=== PATIENT | female | born 1975 | race African-American/Black ===

== ENCOUNTER 2021-08-22 21:05 | Emergency (ER) | payer MEDICAID, SELFPAY ==
[~2021-08-22] VITALS: Ht 177.8 cm; Wt 137.5 kg
[2021-08-22] MEDS ORDERED: ACETAMINOPHEN 500 MG TABLET PO ONE (22:15)
[2021-08-22] MEDS ORDERED: BACITRACIN 0.9 GM PACKET OINTMENT TP ONE (23:15)
[2021-08-22] MEDS ORDERED: LIDOCAINE 5% TRANSDERMAL PATCH TD ONE (23:30)
[2021-08-23] MEDS ORDERED: ACET-3385 PO (01:24)
[2021-08-23] MEDS ORDERED: LIDO700A15 TP (01:24)
[2021-08-23 02:45] VITALS: BP 122/75
[2021-08-24] MEDS ORDERED: SODIUM CHLORIDE 0.9% 100 ML ONE (04:41)
[2021-08-24] MEDS ORDERED: IOHEXOL 350 MG/ML 150 ML VIAL ONE (04:41)
== END 2021-08-23 02:54 | disposition home or self-care (01) ==
LOC: EMS 21:07
DX: S20.211A Contusion of right front wall of thorax, initial encounter (principal); M25.551 Pain in right hip; M79.621 Pain in right upper arm; Z90.89 Acquired absence of other organs; Z88.8 Allergy status to other drugs, medicaments and biological substances; Y04.2XXA Assault by strike against or bumped into by another person, initial encounter; Y93.89 Activity, other specified; Y92.89 Other specified places as the place of occurrence of the external cause; Y99.8 Other external cause status
CPT/HCPCS: 70450; 71250; 72125; 73030; 73060; 73080; 73090; 73502; 81025; 99285; G0238; J7050; Q9967

== ENCOUNTER 2021-08-24 03:30 | Emergency (ER) | payer MEDICAID ==
[~2021-08-24] VITALS: Ht 177.8 cm; Wt 137.5 kg
[~2021-08-24 03:30] MED LIST: ACET-3385 PO; LIDO700A15 TP
[2021-08-24 04:27] LABS: BASOPHILS % (AUTO) 1.1 % (0.0-2.0); EOSINOPHILS % (AUTO) 2.2 % (1.0-6.0); HEMATOCRIT 37.2 % (36-46); HEMOGLOBIN 12.6 g/dL (12.0-16.0); LYMPHOCYTES # (AUTO) 2.2 K/uL (1.0-4.8); LYMPHOCYTES % (AUTO) 30.1 % (22.0-44.0); MEAN CORPUSCULAR HGB CONC 33.9 G/dL (31.0-37.0); MEAN CORPUSCULAR VOLUME 89 fL (80-100); MONOCYTES # (AUTO) 0.7 K/uL (0.1-1.0); MONOCYTES % (AUTO) 10.1 % (2.0-9.0); NEUTROPHILS # (AUTO) 4.2 K/uL (1.8-7.7); NEUTROPHILS % (AUTO) 56.5 % (40.0-70.0); PLATELET COUNT (AUTO) 317 K/uL (150-450); RED CELL DISTRIBUTION WIDTH 14.3 % (11.5-14.5)
[2021-08-24 04:28] LABS: ANION GAP 6 mmol/L (8-16); CARBON DIOXIDE 30 mmol/L (22-29); CHLORIDE 107 mmol/L (98-107); CREATININE 1.09 mg/dL (0.60-1.30); GLOMERULAR FILTR. RATE CALC > 60 mL/min (>60); GLUCOSE,RANDOM 94 mg/dL (70-110); POTASSIUM 3.7 mmol/L (3.5-5.1); SODIUM SERUM 143 mmol/L (136-145); UREA NITROGEN, BLOOD 13 mg/dL (7-18)
[2021-08-24] MEDS ORDERED: ONDANSETRON HCL 4 MG/2 ML VIAL IVP ONE (04:30)
[2021-08-24] MEDS ORDERED: ACETAMINOPHEN 500 MG TABLET PO ONE (04:30)
[2021-08-24 04:32] LABS: PROTHROMBIN TIME 10.5 SEC (9.4-11.6)
[2021-08-24 04:39] LABS: ALANINE AMINOTRANSFERASE 31 U/L (12-78); ALBUMIN 3.1 g/dL (3.4-5.0); ALKALINE PHOSPHATASE 98 U/L (46-116); ASPARTATE AMINOTRANSFERASE 19 U/L (15-37); BILIRUBIN,TOTAL 0.3 mg/dL (0.1-1.0); HCG,QUANTITATIVE < 1 mIU/mL (0-6); TOTAL PROTEIN, SERUM 7.3 g/dL (6.4-8.2)
[2021-08-24] MEDS ORDERED: DiphenhydrAMINE HCL 50 MG/ML VIAL IVP ONE (04:45)
[2021-08-24 04:56] LABS: LIPASE 163 U/L (73-393)
[2021-08-24] MEDS ORDERED: METOCLOPRAMIDE HCL 5 MG/ML 2 ML VIAL IVP ONE (05:00)
[2021-08-24 07:35] VITALS: BP 119/79
== END 2021-08-24 08:56 | disposition home or self-care (01) ==
LOC: EMS 03:31
DX: S20.211A Contusion of right front wall of thorax, initial encounter (principal); M54.9 Dorsalgia, unspecified; R04.2 Hemoptysis; I10 Essential (primary) hypertension; E78.00 Pure hypercholesterolemia, unspecified; Z88.8 Allergy status to other drugs, medicaments and biological substances; Z79.899 Other long term (current) drug therapy; Y04.0XXA Assault by unarmed brawl or fight, initial encounter; Y93.89 Activity, other specified; Y92.89 Other specified places as the place of occurrence of the external cause; Y99.8 Other external cause status
CPT/HCPCS: 36415; 70450; 71260; 74177; 80053; 83690; 84702; 85025; 85610; 85730; 96374; 96375; 99285; J1200; J2405; J2765; 72193; 74160

== ENCOUNTER 2022-02-08 22:01 | Emergency (ER) | payer MEDICAID ==
[~2022-02-08] VITALS: Ht 177.8 cm; Wt 140.0 kg
[2022-02-08] MEDS ORDERED: METHOCARBAMOL 100 MG/ML 10 ML VIAL IVP ONE (23:45)
[2022-02-08] MEDS ORDERED: KETOROLAC TROMETHAMINE 30 MG/ML VIAL IVP ONE (23:45)
[2022-02-09 00:10] LABS: BASOPHILS % (AUTO) 1.8 % (0.0-2.0); EOSINOPHILS % (AUTO) 2.3 % (1.0-6.0); HEMATOCRIT 42.6 % (36-46); HEMOGLOBIN 14.1 g/dL (12.0-16.0); LYMPHOCYTES % (AUTO) 40.1 % (22.0-44.0); MEAN CORPUSCULAR HGB CONC 33.1 G/dL (31.0-37.0); MEAN CORPUSCULAR VOLUME 90 fL (80-100); MONOCYTES # (AUTO) 0.7 K/uL (0.1-1.0); MONOCYTES % (AUTO) 7.2 % (2.0-9.0); NEUTROPHILS # (AUTO) 4.9 K/uL (1.8-7.7); NEUTROPHILS % (AUTO) 48.6 % (40.0-70.0); RED BLOOD CELL COUNT(AUTO) 4.71 MIL/uL (4.00-5.20); RED CELL DISTRIBUTION WIDTH 14.9 % (11.5-14.5)
[2022-02-09 00:16] LABS: ANION GAP 11 mmol/L (8-16); CALCIUM, TOTAL 9.5 mg/dL (8.8-10.5); CARBON DIOXIDE 26 mmol/L (22-29); CHLORIDE 103 mmol/L (98-107); CREATININE 0.94 mg/dL (0.60-1.30); GLUCOSE,RANDOM 94 mg/dL (70-110); POTASSIUM 3.8 mmol/L (3.5-5.1); SODIUM SERUM 140 mmol/L (136-145); UREA NITROGEN, BLOOD 12 mg/dL (7-18)
[2022-02-09 00:18] LABS: GLOMERULAR FILTR. RATE CALC > 60 mL/min (>60)
[2022-02-09 00:22] LABS: ALANINE AMINOTRANSFERASE 20 U/L (12-78); ALBUMIN 2.9 g/dL (3.4-5.0); ALKALINE PHOSPHATASE 91 U/L (46-116); ASPARTATE AMINOTRANSFERASE 17 U/L (15-37); BILIRUBIN,TOTAL 0.2 mg/dL (0.1-1.0); LIPASE 168 U/L (73-393); TOTAL PROTEIN, SERUM 7.3 g/dL (6.4-8.2)
[2022-02-09 00:45] LABS: PLATELET COUNT (AUTO) 190 K/uL (150-450)
[2022-02-09] MEDS ORDERED: ONDANSETRON HCL 4 MG/2 ML VIAL IVP ONE (01:45)
[2022-02-09] MEDS ORDERED: HYDROmorphone 2 MG/ML VIAL IVP ONE (01:45)
[2022-02-09] MEDS ORDERED: ACET-66 PO (03:56)
[2022-02-09] MEDS ORDERED: IBUP-1554 PO (03:56)
[2022-02-09] MEDS ORDERED: BACL10TA PO (03:56)
[2022-02-09] MEDS ORDERED: LIDO700A15 TP (03:56)
[2022-02-09] MEDS ORDERED: LIDOCAINE 5% TRANSDERMAL PATCH TD ONE (04:30)
[2022-02-09 05:15] VITALS: BP 125/80
== END 2022-02-09 05:18 | disposition home or self-care (01) ==
LOC: EMS 22:02
DX: S39.012A Strain of muscle, fascia and tendon of lower back, initial encounter (principal); I10 Essential (primary) hypertension; E78.00 Pure hypercholesterolemia, unspecified; Z88.8 Allergy status to other drugs, medicaments and biological substances; Z79.899 Other long term (current) drug therapy; X50.0XXA Overexertion from strenuous movement or load, initial encounter; Y93.89 Activity, other specified; Y92.89 Other specified places as the place of occurrence of the external cause; Y99.8 Other external cause status
CPT/HCPCS: 99284; 80053; 83690; 84703; 85025; 96374; 72131; 96375; J1885; J2405; J2800; J1170